=== PATIENT | male | born 1940 | race Caucasian/White ===

== ENCOUNTER → 2020-05-24 12:09 | Outpatient (CLI) | payer MEDICARE, SELFPAY ==
--- NOTE | 2020-05-24 | DI.US.S_ITS ---
PROCEDURE: US ABDOMEN COMPLETE INDICATIONS: ABDOMINAL BRUIT TECHNIQUE: Real-time scanning was performed of the abdominal and retroperitoneal organs, with image documentation. COMPARISON: None. FINDINGS: Liver: Liver is normal in size and homogeneous in echotexture. Gallbladder: Prior cholecystectomy. Biliary ducts: Intrahepatic bile ducts are non-dilated. Extrahepatic bile duct caliber measures 3.5 mm. Normal is 6-7 mm or less in diameter, or 10 mm or less post-cholecystectomy. Pancreas: Not seen due to bowel gas. Spleen: Spleen is normal in size and homogeneous in echotexture. Kidneys: Kidneys are normal in size and echotexture. Right kidney measures 10.1 cm long; left kidney measures 12.4 cm long. No hydronephrosis or nephrolithiasis. No solid masses. The kidneys are somewhat poorly seen due to overlying bowel gas. There is an area of renal cortical lobulation inferior left kidney. Aorta: Visualized aorta is normal in caliber at less than 3 cm, except at the distal aorta with fusiform aneurysm is present measuring up to 3.7 x 4.4 cm in maximal axial dimension the over a fusiform distance of 4.4 cm. . Iliacs: Proximal common iliac arteries are normal in caliber at less than 2.5 cm. IVC: Intrahepatic inferior vena cava is patent. Miscellaneous: No free abdominal fluid. IMPRESSION: Distal abdominal aortic aneurysm is present, measuring up to 3.7 x 4.4 cm in maximal axial dimension. No dissection is seen. The quality of visualization through the abdomen and pelvis is somewhat limited by overlying bowel gas. Prior cholecystectomy. Dictated by: Tobias Fuchs M.D. on 05/24/2020 at 14:49 Approved by: Tobias Fuchs M.D. on 05/24/2020 at 14:52
== END ==
PROVIDERS: PCP Internal Medicine; Referring Provider Internal Medicine; Visit Provider Hospitalist
DX: I71.4 Abdominal aortic aneurysm, without rupture (principal); R09.89 Other specified symptoms and signs involving the circulatory and respiratory systems; Z90.49 Acquired absence of other specified parts of digestive tract
CPT/HCPCS: 76700